=== PATIENT | female | born 1935 | race Caucasian/White ===

== ENCOUNTER → 2016-09-28 | Outpatient (CLI) | payer MEDICARE, OTHER ==
[2016-09-28] VITALS (12 sets, daily range): BP systolic 140–193; BP diastolic 57–102; PULSE 59–74
[~2016-09-28] VITALS: Ht 149.9 cm; Wt 50.9 kg
[~2016-09-28] MED LIST: CELEXA 20MG20 MG/TAB PO; COZAAR100 MG PO; DESYREL 50MG50 MG PO; GLUCOPHAGE500 MG/TAB PO; NORVASC2.5 MG PO; PROTONIX 40MG T40 MG PO; SINGULAIR 110 MG/TAB PO
== END ==
LOC: COL.RAD 12:48
DX: D64.89 Other specified anemias (principal)
CPT/HCPCS: J2250; J3010

== ENCOUNTER 2017-09-13 09:00 | Outpatient (RCR) | payer MEDICARE, OTHER ==
[2017-06-21 08:09] VITALS: BP 149/69; PULSE 91; TEMP 98.7
[2017-08-30 09:52] VITALS: BP 101/55; PULSE 62; TEMP 97.8
[~2017-09-13] VITALS: Ht 149.9 cm; Wt 50.0 kg
[~2017-09-13 09:00] MED LIST changes: +DECADRON 4MG TAB4 MG PO; +NATURAL IRON65 MG PO; +OMEGA-31 SGL PO; +REVLIMID10 MG PO; +ZITHROMAX 250M250 MG PO; +ZOMETA4 MG/100 M IV; +ZOVIRAX400 MG PO
[2017-09-13 09:20] VITALS: BP 142/65; PULSE 61; TEMP 98.1
== END 2017-09-14 08:35 | disposition home or self-care (01) ==
LOC: EUO 09:00
DX: Z45.2 Encounter for adjustment and management of vascular access device (principal); C90.00 Multiple myeloma not having achieved remission; J90 Pleural effusion, not elsewhere classified
CPT/HCPCS: C1751; C1894

== ENCOUNTER → 2018-04-12 | Outpatient (CLI) | payer MEDICARE, OTHER | LOC: COL.VAS 12:44 | DX: M79.89 Other specified soft tissue disorders (principal); M79.605 Pain in left leg; Z85.79 Personal history of other malignant neoplasms of lymphoid, hematopoietic and related tissues ==

== ENCOUNTER 2018-05-17 14:35 | Outpatient (CLI) | payer MEDICARE, OTHER ==
[~2018-05-17] VITALS: Ht 149.9 cm; Wt 123.1 kg
[2018-05-17 15:15] VITALS: BP 115/82; PULSE 62; TEMP 97.9
== END 2018-05-17 15:47 | disposition home or self-care (01) ==
LOC: EUO 14:35
DX: Z45.2 Encounter for adjustment and management of vascular access device (principal); C90.00 Multiple myeloma not having achieved remission; Z95.9 Presence of cardiac and vascular implant and graft, unspecified

== ENCOUNTER 2018-05-23 14:19 | Outpatient (RCR) | payer MEDICARE, OTHER ==
[~2018-05-23] VITALS: Ht 149.9 cm; Wt 53.5 kg
[2018-05-23] MEDS ORDERED: ELIQUIS 5MG PO (15:01)
[2018-05-23 15:11] VITALS: BP 157/95; PULSE 70; TEMP 98.3
[2018-05-23 15:17] VITALS: BP 156/71; PULSE 67
[2018-05-24 15:33] VITALS: BP 151/77; PULSE 77; TEMP 98.2
== END 2018-05-24 16:00 | disposition home or self-care (01) ==
LOC: EUO 14:19
DX: Z45.2 Encounter for adjustment and management of vascular access device (principal); Z95.9 Presence of cardiac and vascular implant and graft, unspecified; C90.00 Multiple myeloma not having achieved remission
CPT/HCPCS: C1751

== ENCOUNTER 2018-08-24 08:54 | Outpatient (CLI) | payer MEDICARE, OTHER ==
[~2018-08-24] VITALS: Ht 149.9 cm; Wt 57.0 kg
[~2018-08-24 08:54] MED LIST changes: +ELIQUIS 5MG PO
[2018-08-24 09:44] VITALS: BP 144/73; PULSE 62; TEMP 98.1
[2018-08-24] MEDS ORDERED: MULTI VITAMINS1 TAB PO (09:56)
[2018-08-24] MEDS ORDERED: MUCINEX D1 TER PO (09:57)
== END 2018-08-24 11:10 | disposition home or self-care (01) ==
LOC: COL.CAR 08:54
DX: C90.00 Multiple myeloma not having achieved remission (principal)

== ENCOUNTER 2018-08-27 09:06 | Outpatient (CLI) | payer MEDICARE, OTHER ==
[~2018-08-27] VITALS: Ht 149.9 cm; Wt 56.2 kg
[2018-08-27] VITALS (7 sets, daily range): BP systolic 134–162; BP diastolic 69–98; PULSE 63–76; TEMP 98.1–98.2
[~2018-08-27 09:06] MED LIST changes: +MUCINEX D1 TER PO; +MULTI VITAMINS1 TAB PO
== END 2018-08-27 15:45 | disposition home or self-care (01) ==
LOC: COL.CAR 09:06
DX: Z45.2 Encounter for adjustment and management of vascular access device (principal); Z85.79 Personal history of other malignant neoplasms of lymphoid, hematopoietic and related tissues; Z86.718 Personal history of other venous thrombosis and embolism; Z96.651 Presence of right artificial knee joint; Z90.710 Acquired absence of both cervix and uterus; Z88.0 Allergy status to penicillin; Z88.2 Allergy status to sulfonamides; Z88.1 Allergy status to other antibiotic agents; Z88.8 Allergy status to other drugs, medicaments and biological substances; Z79.01 Long term (current) use of anticoagulants
CPT/HCPCS: J1644; J2250; J3010; J7120

== ENCOUNTER 2019-05-02 07:50 | Outpatient (RCR) | payer MEDICARE, OTHER ==
[~2019-05-02] VITALS: Ht 149.9 cm; Wt 64.0 kg
[2019-05-02 09:05] VITALS: BP 155/72; PULSE 120; TEMP 97.7
== END 2019-05-02 10:00 | disposition home or self-care (01) ==
LOC: EUO 07:50 → EDSTATUS 08:00 → EUO 08:00
DX: C90.00 Multiple myeloma not having achieved remission (principal); Z95.828 Presence of other vascular implants and grafts
CPT/HCPCS: C1751

== ENCOUNTER 2020-12-30 07:40 | Outpatient (CLI) | payer MEDICARE, OTHER ==
[~2020-12-30] VITALS: Ht 149.9 cm; Wt 57.6 kg
[2020-12-30 08:23] VITALS: BP 140/72; PULSE 77; TEMP 98.3
[2020-12-30] MEDS ORDERED: LOVENOX 6060 MG/0.6 SQ (10:28)
== END 2020-12-30 10:32 | disposition home or self-care (01) ==
LOC: EUO 07:40
DX: Z45.2 Encounter for adjustment and management of vascular access device (principal); C90.02 Multiple myeloma in relapse
CPT/HCPCS: C1751